=== PATIENT | male | born 1980 | race Caucasian/White ===

== ENCOUNTER 2021-11-04 17:17 | Emergency (ER) | payer BC ==
[2021-11-04 18:21] LABS: Absolute Lymphocytes (CBC) 0.9 K/uL (0.7-4.9); Hematocrit 47.8 % (39.6-49.0); Lymphocytes % 7.1 % (15.3-44.8); MCV 79.9 fL (80-100); MPV 7.2 fL (7.6-11.3); RBC Red Blood Cell Count 5.98 M/uL (4.33-5.43)
[2021-11-04] MEDS ORDERED: NA CHLORIDE 0.9% 0 ML ONE (18:40)
[2021-11-04] MEDS ORDERED: MAGNESIUM SULFATE 1 gm IVPB 0 GM/0 ML BAG IV ONE (18:40)
[2021-11-04] MEDS ORDERED: NA CHLORIDE 0.9% 1,000 ML ONE (18:46)
[2021-11-04] MEDS ORDERED: MAGNESIUM SULFATE 1 gm IVPB 1 GM/100 ML BAG IV ONE (18:46)
[2021-11-04] MEDS ORDERED: DIAZEPAM 10 MG/2 ML INJ SYRINGE ONE (18:46)
--- NOTE | 2021-11-04 18:53 | RAD REPORT ---
EXAM DESCRIPTION: RAD - Chest Single View - 11/04/2021 6:40 pm CLINICAL HISTORY: CHEST PAIN Chest pain. COMPARISON: No comparisons FINDINGS: Portable technique limits examination quality. The lungs are grossly clear. The heart is normal in size. No displaced fractures. IMPRESSION: No acute intrathoracic process suspected.
[2021-11-04 20:15] LABS: Potassium 3.8 mmol/L (3.5-5.1); Troponin High Sensitivity 36.8 pg/mL (<58.9)
--- NOTE | 2021-11-04 22:26 | ER ---
Nurse's Notes [facility] Name: Harshal Enriquez Age: 41 yrs Sex: Male : 1980 Arrival Date: 11/04/2021 Time: 17:24 Bed 14 Private MD: Diagnosis: Volume depletion, unspecified Presentation: 11/04 17:27 Chief complaint: Patient states: Patient was training for the [email or web address] competition next ko1 month. He says he was running down at [place] and got too hot, threw up and started having chills, and dizziness/generalized weakness. Coronavirus screen: Client denies travel out of the [place] in the last 14 days. At this time, the client does not indicate any symptoms associated with coronavirus-19. Ebola Screen: No symptoms or risks identified at this time. Initial Sepsis Screen: Does the patient meet any 2 criteria? No. Patient's initial sepsis screen is negative. Does the patient have a suspected source of infection? No. Patient's initial sepsis screen is negative. Risk Assessment: Do you want to hurt yourself or someone else? Patient reports no desire to harm self or others. Onset of symptoms was November 04, 2021. 17:27 Method Of Arrival: EMS: [facility] ko1 17:27 Acuity: ULISES 3 ko1 Triage Assessment: 17:31 General: Appears in no apparent distress. Behavior is calm, cooperative, appropriate ko1 for age, anxious. Pain: Denies pain. Historical: - Allergies: 17:31 No Known Allergies; ko1 - Home Meds: 17:31 None [Active]; ko1 - PMHx: 17:31 None; ko1 - PSHx: 17:31 None; ko1 - Immunization history:: Adult Immunizations up to date. - Social history:: Smoking status: Patient denies any tobacco usage or history of. Screenin:32 Abuse screen: Denies threats or abuse. Denies injuries from another. Nutritional ko1 screening: No deficits noted. Tuberculosis screening: No symptoms or risk factors identified. Fall Risk None identified. Assessment: 17:32 General: Appears in no apparent distress. comfortable, well developed, Behavior is ko1 cooperative, appropriate for age, anxious, Reports Denies. Pain: Denies pain. Neuro: No deficits noted. Cardiovascular: No deficits noted. Respiratory: No deficits noted. GI: Reports vomiting. : No deficits noted. EENT: No deficits noted. Derm: No deficits noted. Musculoskeletal: No deficits noted. 19:00 Reassessment: Patient appears in no apparent distress at this time. Patient and/or ke1 family updated on plan of care and expected duration. Pain level reassessed. Patient denies pain at this time. 19:30 Reassessment: Lab recollected and sent. ke1 20:00 Reassessment: No changes from previously documented assessment. ke1 21:00 Reassessment: No changes from previously documented assessment. ke1 22:00 Reassessment: No changes from previously documented assessment. ke1 Vital Signs: 17:27 BP 141 / 104; Pulse 70; Resp 22; Temp 99; Pulse Ox 99% ; Weight 72.57 kg; Height 5 ft. ko1 10 in. (177.80 cm); Pain 0/10; 17:35 BP 126 / 98; Pulse 60; Resp 14; Pulse Ox 100% ; Pain 0/10; ko1 18:47 BP 132 / 92; Pulse 77; Pulse Ox 98% ; ko1 19:30 BP 129 / 91; Pulse 68; Resp 18; Pulse Ox 93% on R/A; Pain 0/10; ke1 20:30 BP 124 / 90; Pulse 74; Resp 17; Pulse Ox 99% on R/A; Pain 0/10; ke1 21:30 BP 117 / 74; Pulse 74; Resp 21; Pulse Ox 98% on R/A; ke1 22:16 BP 111 / 77; Pulse 78; Resp 17; Temp 97.8(O); Pulse Ox 99% on R/A; Pain 0/10; ke1 17:27 Body Mass Index 22.96 (72.57 kg, 177.80 cm) ko1 Hope Coma Score: 17:32 Eye Response: spontaneous(4). Verbal Response: oriented(5). Motor Response: obeys ko1 commands(6). Total: 15. ED Course: 17:24 Patient arrived in ED. eb 17:26 Carol Freitas, RN is Primary Nurse. ko1 17:31 Triage completed. ko1 17:31 Arm band placed on right wrist. Patient placed in an exam room, Patient notified of ko1 wait time. 17:32 Patient has correct armband on for positive identification. Bed in low position. Call ko1 light in reach. Side rails up X 1. 17:48 Meenak[facility]C [facility] snw 17:48 Ever Brewster MD is Attending Physician. snw 18:19 Basic Metabolic Panel Sent. ko1 18:19 CBC with Diff Sent. ko1 18:19 Troponin HS Sent. ko1 18:20 Inserted saline lock: 20 gauge in left forearm, using aseptic technique. Blood ko1 collected. 18:42 XRAY Chest (1 view) In Process Unspecified. EDMS 22:50 No provider procedures requiring assistance completed. IV discontinued, intact, kd3 bleeding controlled, No redness/swelling at site. Pressure dressing applied. Administered Medications: 18:35 Drug: NS 0.9% 1000 ml Route: IV; Rate: 1 bolus; Site: left forearm; ko1 22:52 Follow up: IV Status: Completed infusion; IV Intake: 1000ml kd3 18:35 Drug: Magnesium Sulfate 1 grams Route: IVPB; Infused Over: 1 hrs; Site: left forearm; ko1 22:51 Follow up: IV Status: Completed infusion kd3 18:40 Drug: Valium (diazepam) 5 mg Route: IVP; Site: left forearm; ko1 19:00 Follow up: Response: No adverse reaction; RASS: Alert and Calm (0) ke1 20:48 Drug: D5W 500 ml Route: IV; Rate: 250 ml/hr; Site: left antecubital; ke1 22:51 Follow up: IV Status: Completed infusion; IV Intake: 250ml kd3 Medication: 17:32 VIS not applicable for this client. ko1 Intake: 22:51 IV: 250ml; Total: 250ml. kd3 22:52 IV: 1000ml; Total: 1250ml. kd3 Outcome: 22:26 Discharge ordered by . snw 22:51 Discharged to home ambulatory. kd3 22:51 Condition: stable 22:51 Discharge instructions given to patient, family, Instructed on discharge instructions, follow up and referral plans. Demonstrated understanding of instructions, follow-up care. 22:53 Patient left the ED. kd3 Signatures: Dispatcher [employer] EDMS Meenakshi Nguyen FNP-C [employer] Carol Paulson Kyli, RN RN kd3 Jonnie Gao, RN RN ke1 Carol Freitas, RN RN ko1 Corrections: (The following items were deleted from the chart) 22:28 22:16 BP 111 / 77; Pulse 78bpm; Resp 17bpm; Pulse Ox 99% RA; Pain 0/10; ke1 ke1
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
[2021-11-05 02:13] VITALS: BP 111/77; TEMP 97.8; O2SAT 99
--- NOTE | 2021-11-05 15:07 | EKG ---
Test Date: 2021-11-04 Test Time: 18:19:42 Home Lending Officer: HEIDI MEASUREMENT RESULTS: Intervals: Rate: 55 MI: 200 QRSD: 96 QT: 420 QTc: 401 [place]: P: 56 MI: 200 QRS: 88 T: 50 INTERPRETIVE STATEMENTS: Sinus bradycardia with sinus arrhythmia Otherwise normal ECG No previous ECG available for comparison Electronically Signed On 11-05-21 15:06:45 CDT by Alex Liao
== END 2021-11-04 22:53 | disposition home or self-care (01) ==
LOC: ER 17:17
DX: E86.9 Volume depletion, unspecified (principal)
CPT/HCPCS: 96365; 93005; 85025; 80048; 36415; 83735; 82550; 84484; 71045; 96375; 99284; 96366; J3360; J3475; J7060; J7030